=== PATIENT | female | born 1990 | race African-American/Black ===

== ENCOUNTER 2021-07-22 14:46 | Emergency (ER) | payer OTHER, SELFPAY ==
--- NOTE | ~2021-07-22 | XR_ITS ---
XR chest 1V portable DATE: 07/22/2021 16:01 INDICATION: Cough TECHNIQUE: Portable upright AP chest on 07/22/2021 at 1556 hours COMPARISON: None FINDINGS: Normal heart size. No hilar or mediastinal enlargement. No pulmonary vascular congestion or pleural effusion or pneumothorax. No pulmonary infiltrate or consolidation. 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
[2021-07-22 14:49] VITALS: BP 116/71; PULSE 98; RESP 18; TEMP 36.5; O2SAT 100
[2021-07-22 16:52] LABS: SARS-CoV-2 RNA PCR Positive
--- NOTE | 2021-07-22 16:52 | ED.GENADULT ---
HPI - General Adult General Chief complaint: Upper Respiratory Infection Stated complaint: dont feel good Time Seen by Provider: 07/22/21 15:43 Source: patient Mode of arrival: ambulatory Limitations: no limitations History of Present Illness HPI narrative: Patient is 31-year-old female with chief complaint of sore throat, body aches, dry cough, feelings of shortness of breath over the past 2 to 3 days. Patient denies any chest pain, syncope, neurological deficit, inability to swallow. Patient reports that she received one of her 2 vaccination shots. Patient denies chance of due to abstinence. Patient denies nausea, vomiting or diarrhea or fevers. Related Data Allergies Allergy/AdvReac Type Severity Reaction Status Date / Time No Known Allergies Allergy Verified 07/22/21 16:29 Review of Systems Review of Systems: CONSTITUTIONAL: Reports body aches denies fever, chills, or sweats. EYES: Denies visual changes, redness, or discharge. ENT: Reports sore throat denies rhinorrhea, congestion, or otalgia. CARDIOVASCULAR: Denies chest pain, palpitations, or edema. RESPIRATORY: Reports cough or dyspnea. GASTROINTESTINAL: Denies abdominal pain, nausea, vomiting, or diarrhea. GENITOURINARY: Denies dysuria or hematuria. SKIN: Denies rash or itching. MUSCULOSKELETAL: Denies back pain, joint pain, or myalgia. NEUROLOGIC: Denies headache, numbness, dizziness, or weakness. PSYCHIATRIC: Denies anxiety or depression. Exam Narrative: GENERAL: Well-appearing, well-nourished, and in no acute distress. Nontoxic in appearance. Nondiaphoretic. HEAD: Normocephalic, atraumatic. EYES: PERRLA and EOMI. ENT: Nares clear, no rhinorrhea or epistaxis. Mucous membranes moist. Oropharynx with mild erythema no uvular deviation without tonsillar exudate or other lesions. NECK: Supple. Range of motion intact CHEST: Clear to auscultation. No respiratory distress. No wheezes rales or rhonchi. Patient speaking in clear sentences without difficulty. Patient satting 99 to 100% on room air. No tachypnea HEART: Regular rate and rhythm. EXTREMITIES: Normal range of motion. No edema. SKIN: Warm, dry, no rash. NEURO: No focal deficits. Alert and oriented x3. PSYCH: Normal mood and affect. Course Vital Signs Vital signs: Vital Signs Temperature 97.7 F 07/22/21 14:49 Pulse Rate 98 07/22/21 14:49 Respiratory Rate 18 07/22/21 14:49 Blood Pressure 116/71 07/22/21 14:49 Pulse Oximetry 100 07/22/21 14:49 Temperature 97.7 F 07/22/21 14:49 Pulse Rate 98 07/22/21 14:49 Respiratory Rate 18 07/22/21 14:49 Blood Pressure 116/71 07/22/21 14:49 Pulse Oximetry 100 07/22/21 14:49 Medical Decision Making MDM Narrative Medical decision making narrative: Patient is rapid strep was positive. Patient influenza is negative. Patient's Covid test is pending. Patient has no known allergies so she will be prescribed amoxicillin. Patient instructed to take [id number] medications for discomfort. Patient instructed to quarantine and watch for Covid test results. Patient instructed to follow the health department guidelines regarding quarantine instructions. Patient given return to emergency department instructions. Vital Signs Vital Signs: Vital Signs Temperature 97.7 F 07/22/21 14:49 Pulse Rate 98 07/22/21 14:49 Respiratory Rate 18 07/22/21 14:49 Blood Pressure 116/71 07/22/21 14:49 Pulse Oximetry 100 07/22/21 14:49 Temperature 97.7 F 07/22/21 14:49 Pulse Rate 98 07/22/21 14:49 Respiratory Rate 18 07/22/21 14:49 Blood Pressure 116/71 07/22/21 14:49 Pulse Oximetry 100 07/22/21 14:49 Lab Data Labs: Lab Results 07/22/21 Range/Units 16:07 SARS-CoV-2 RNA (RT-PCR) Pending Influenza A Screen Negative Reference Range: Negative Influenza B Screen Negative
== END 2021-07-22 16:44 | disposition home or self-care (01) ==
PROVIDERS: Physician Assistant; Emergency Provider Emergency Medicine
DX: U07.1 COVID-19 (principal); J02.0 Streptococcal pharyngitis
CPT/HCPCS: 71045; 87804; 87880; 99283; C9803; U0003; U0005